=== PATIENT | male | born 1995 | race Two or more races ===

== ENCOUNTER → 2024-07-04 | Outpatient (CLI) | payer OTHER ==
[2024-07-04 06:53] LABS: Urine Bacteria MANY /hpf (None Seen); Urine Blood TRACE /uL (Negative); Urine Protein, UAD TRACE (Negative); Urine Squamous Epithelial Cell FEW /hpf (<5); Urine Urobilinogen Normal (Negative); Urine WBC 276 /HPF (0-3); Urine WBC Clumps PRESENT /hpf (None Seen); Urine pH 6.5 (5.0-9.0)
[2024-07-04 06:54] LABS: Urine Clarity Cloudy (Clear); Urine Color Light-Yellow (Yellow)
== END | disposition home or self-care (01) ==
LOC: LAB 05:52
PROVIDERS: ATTEND Urology
DX: N39.0 Urinary tract infection, site not specified (principal)
CPT/HCPCS: 81001; 87086

== ENCOUNTER 2024-10-19 09:01 | Outpatient (CLI) | payer OTHER ==
--- NOTE | 2024-10-19 09:55 | DVH ---
Indication: BURNING AND LOWER BACK PAIN Technique: CT axial images of the abdomen and pelvis are obtained without contrast. Coronal and sagit fannie reformats were obtained. Radiation Dose Information: CTDI volume is 9.3 mGy. Dose-length product is 528.94 mGy*cm Comparison: None FINDINGS: There is limited interpretation of the abdomen and pelvis without administration of intravenous contr ast. The lung bases demonstrate no pleural effusion. Adrenal glands, spleen, pancreas and liver are unremarkable in shape. No CT evidence for cholelithia sis. The left kidney demonstrates no hydronephrosis / nephrolithiasis. Absent right kidney. Extensive rad iopaque debris in the flank region and right lateral abdominal wall Stomach is partially distended. Small bowel loops normal in caliber. Large volume stool within the colon. Normal appendix. m bladder partially distended thickening up to 8 mm. Bladder calculus measuring 3 cm. No free pelvic fluid. No inguinal lymphadenopathy. Radiopaque debris/ shrapnel within the left pelvic/ hip region. Old left iliac fracture. Jddp-is-ombu rate thoracolumbar degenerative disc disease. Moderate degenerate changes bilateral hips. IMPRESSION: Limited evaluation without contrast. Right kidney absent, likely surgically removed from trauma. Correlate with clinical history. Radiopaque debris/shrapnel in the right lateral abdominal wall, flank region, left hip/pelvic region. 3 cm bladder calculus. Bladder wall thickening which may be secondary to neurogenic bladder, outlet obstruction. Large volume stool in the colon. Other findings as described.
== END 2024-10-19 17:00 | disposition home or self-care (01) ==
LOC: CT 09:01
DX: N21.0 Calculus in bladder (principal); K31.89 Other diseases of stomach and duodenum; M51.35 Other intervertebral disc degeneration, thoracolumbar region; M16.0 Bilateral primary osteoarthritis of hip
CPT/HCPCS: 74176